=== PATIENT | female | born 1955 | race Caucasian/White ===

== ENCOUNTER 2022-06-04 13:19 | Outpatient (CLI) | payer OTHER | END 2022-06-04 13:20 | disposition home or self-care (01) | LOC: BICMAMMO 13:19 | PROVIDERS: ATTEND Student in an Organized Health Care Education/Training Program | DX: Z12.31 Encounter for screening mammogram for malignant neoplasm of breast (principal) | CPT/HCPCS: 77063; 77067 ==

== ENCOUNTER 2022-06-07 22:15 | Emergency (ER) | payer OTHER ==
[2022-06-07 23:53] LABS: #Basophils 0.1 thou/uL (0.0-0.2); #Eosinphils 0.4 thou/uL (0.0-0.7); #Lymphocytes 3.9 thou/uL (1.20-3.40); #Monocytes 0.8 thou/uL (0.11-0.59); #Neutrophils 7.1 thou/uL (1.40-6.50); %Basophils 0.8 % (0.0-1.0); %Eosinophils 3.6 % (0.0-10.0); %Lymphocytes 31.7 % (21.0-51.0); %Monocytes 6.7 % (0.0-10.0); %Neutrophils 57.2 % (42.0-75.0); Hemoglobin 14.5 g/dL (12.0-16.0); Mean Corpuscular HGB CONC 34.2 g/dL (32.0-36.0); Mean Corpuscular Hemoglobin 30.9 pg (27.0-31.0); Mean Corpuscular Volume 90.3 fL (78.0-98.0); Mean Platelet Volume 6.7 fL (7.4-10.4); Platelet Count 361 thou/uL (130-400); RBC Distribution Width 12.9 % (11.5-14.5); Red Blood Cell (RBC) Count 4.68 mill/uL (4.20-5.40); White Blood Cell (WBC) Count 12.4 thou/uL (4.8-10.8)
[2022-06-08 00:05] LABS: ALT (SGPT) 17 U/L (8-55); AST (SGOT) 19 U/L (5-34); Albumin 4.4 g/dL (3.4-4.8); Alkaline Phosphatase 106 U/L (40-110); Anion Gap 24 mmol/L (10-20); BUN (Urea Nitrogen) 24 mg/dL (9.8-20.1); Bilirubin, Total 0.8 mg/dL (0.2-1.2); Calc. Creatinine Clearance 0 mL/min (70-130); Calcium 9.7 mg/dL (7.8-10.44); Carbon Dioxide 17 mmol/L (23-31); Chloride 102 mmol/L (98-107); Estimated GFR 26; Globulin 3.9 g/dL (2.4-3.5); Glucose 149 mg/dL (80-115); Magnesium 1.8 mg/dL (1.6-2.6); Protein, Total 8.3 g/dL (5.8-8.1); Sodium 139 mmol/L (136-145)
== END 2022-06-08 03:11 | disposition home or self-care (01) ==
LOC: ERS 22:15
DX: R07.89 Other chest pain (principal); I48.91 Unspecified atrial fibrillation; Z79.01 Long term (current) use of anticoagulants; Z79.899 Other long term (current) drug therapy
CPT/HCPCS: 36415; 71045; 80053; 83605; 83735; 84443; 84484; 85025; 93005

== ENCOUNTER 2023-01-01 19:30 | Outpatient (CLI) | payer OTHER | END 2023-01-01 19:31 | disposition home or self-care (01) | LOC: SLEEPLAB 19:30 | PROVIDERS: ATTEND Student in an Organized Health Care Education/Training Program | DX: G47.33 Obstructive sleep apnea (adult) (pediatric) (principal); E66.9 Obesity, unspecified; G47.00 Insomnia, unspecified; Z68.41 Body mass index [BMI] 40.0-44.9, adult; G47.61 Periodic limb movement disorder | CPT/HCPCS: 95811 ==

== ENCOUNTER 2023-09-28 11:38 | Emergency (ER) | payer MEDICARE ==
[2023-09-28] MEDS ORDERED: Lidocaine 1% w/Epinephrine 1:100K 20 ML VIAL ONE (11:59)
== END 2023-09-28 12:28 | disposition home or self-care (01) ==
LOC: ERS 11:38
DX: N76.4 Abscess of vulva (principal); Z87.891 Personal history of nicotine dependence
CPT/HCPCS: 99282

== ENCOUNTER 2024-02-11 08:19 | Day surgery (SDC) | payer MEDICARE ==
[2024-02-11 08:39] LABS: #Basophils 0.05 10x3/uL (0.0-0.2); %Basophils 0.7 % (0.0-1.0); %Eosinophils 5.2 % (0.0-10.0); %Lymphocytes 19.7 % (21.0-51.0); %Neutrophils 66.1 % (42.0-75.0); Hematocrit 40.6 % (36.0-47.0); Hemoglobin 13.3 g/dL (12.0-16.0); Mean Corpuscular HGB CONC 32.8 g/dL (32.0-36.0); Mean Corpuscular Hemoglobin 30.9 pg (27.0-31.0); Mean Corpuscular Volume 94.2 fL (78.0-98.0); Mean Platelet Volume 9.1 fL (7.4-10.4); Platelet Count 303 10x3/uL (130-400); RBC Distribution Width 13.4 % (11.5-14.5); Red Blood Cell (RBC) Count 4.31 mill/uL (4.20-5.40)
[2024-02-11 08:53] LABS: PTT 33.8 sec (22.9-36.1)
[2024-02-11 09:45] VITALS: BP 137/67; TEMP 98.4
[2024-02-11] MEDS ORDERED: fentaNYL 50 mcg/mL 1 mL Vial ONE (09:47)
[2024-02-11] MEDS ORDERED: Midazolam HCl 2 mg/2 ml Vial ONE (09:47)
[2024-02-11] MEDS ORDERED: Lidocaine 1% w/Epinephrine 1:100K 20 ML VIAL ONE (09:48)
[2024-02-11] MEDS ORDERED: Sodium Bicarbonate 2.5 MEQ/5 ML SDV ONE (09:48)
== END 2024-02-11 14:00 | disposition home or self-care (01) ==
LOC: CT 08:19
PROVIDERS: ATTEND Student in an Organized Health Care Education/Training Program
PROC: 0BBJ3ZX Excision of Left Lower Lung Lobe, Percutaneous Approach, Diagnostic (ICD-10-PCS; principal; 2024-02-11)
DX: C34.32 Malignant neoplasm of lower lobe, left bronchus or lung (principal); G47.33 Obstructive sleep apnea (adult) (pediatric); J44.9 Chronic obstructive pulmonary disease, unspecified; I48.91 Unspecified atrial fibrillation; I10 Essential (primary) hypertension; K57.30 Diverticulosis of large intestine without perforation or abscess without bleeding; I13.0 Hypertensive heart and chronic kidney disease with heart failure and stage 1 through stage 4 chronic kidney disease, or unspecified chronic kidney disease; N18.32 Chronic kidney disease, stage 3b; I50.30 Unspecified diastolic (congestive) heart failure; Z90.710 Acquired absence of both cervix and uterus; Z96.653 Presence of artificial knee joint, bilateral; Z95.5 Presence of coronary angioplasty implant and graft; Z79.82 Long term (current) use of aspirin; Z79.84 Long term (current) use of oral hypoglycemic drugs; Z79.899 Other long term (current) drug therapy; Z79.01 Long term (current) use of anticoagulants; Z87.891 Personal history of nicotine dependence; Z95.0 Presence of cardiac pacemaker; Z88.6 Allergy status to analgesic agent
CPT/HCPCS: 32408; 71045; 71046; 77012; 85025; 85610; 85730; 88333; 88334; J3010; 88305; 88341; 88342; J2250

== ENCOUNTER 2024-02-20 15:31 | Emergency (ER) | payer MEDICARE ==
[~2024-02-20 15:31] MED LIST: Iopamidol-370 76% 500 ML MDV (1 ML CHARGE) ONE
[2024-02-20 17:03] LABS: #Basophils 0.04 10x3/uL (0.0-0.2); %Basophils 0.6 % (0.0-1.0); %Eosinophils 2.8 % (0.0-10.0); %Lymphocytes 15.6 % (21.0-51.0); %Neutrophils 72.7 % (42.0-75.0); Hematocrit 36.8 % (36.0-47.0); Hemoglobin 12.2 g/dL (12.0-16.0); Mean Corpuscular HGB CONC 33.2 g/dL (32.0-36.0); Mean Corpuscular Volume 93.4 fL (78.0-98.0); Mean Platelet Volume 9.5 fL (7.4-10.4); Platelet Count 233 10x3/uL (130-400); RBC Distribution Width 13.8 % (11.5-14.5); Red Blood Cell (RBC) Count 3.94 mill/uL (4.20-5.40)
[2024-02-20 17:17] LABS: INR-International Normal Ratio 1.2; PTT 38.1 sec (22.9-36.1); Prothrombin Time 14.8 sec (12.0-14.7)
[2024-02-20 17:18] LABS: ALT (SGPT) 18 U/L (8-55); AST (SGOT) 24 U/L (5-34); Albumin 3.2 g/dL (3.4-4.8); Alkaline Phosphatase 66 U/L (40-110); Anion Gap 16 mmol/L (10-20); BUN (Urea Nitrogen) 17 mg/dL (9.8-20.1); Bilirubin, Total 0.6 mg/dL (0.2-1.2); Calc. Creatinine Clearance 0 mL/min (70-130); Carbon Dioxide 23 mmol/L (23-31); Chloride 108 mmol/L (98-107); Estimated GFR 51; Globulin 3.1 g/dL (2.4-3.5); Glucose 101 mg/dL (80-115); Lipase 18 U/L (8-78); Potassium 4.1 mmol/L (3.5-5.1); Protein, Total 6.3 g/dL (5.8-8.1); Sodium 143 mmol/L (136-145)
[2024-02-20 17:48] LABS: Troponin I 0.014 ng/mL (< 0.028)
[2024-02-20] MEDS ORDERED: Acetaminophen 500 MG TAB ONE (18:05)
== END 2024-02-20 20:44 | disposition home or self-care (01) ==
LOC: ERS 15:31
DX: S60.221A Contusion of right hand, initial encounter (principal); S29.9XXA Unspecified injury of thorax, initial encounter; M79.18 Myalgia, other site; I10 Essential (primary) hypertension; I48.91 Unspecified atrial fibrillation; E11.9 Type 2 diabetes mellitus without complications; R54 Age-related physical debility; W18.30XA Fall on same level, unspecified, initial encounter; Y93.01 Activity, walking, marching and hiking; Y92.009 Unspecified place in unspecified non-institutional (private) residence as the place of occurrence of the external cause; Z79.01 Long term (current) use of anticoagulants; Z95.0 Presence of cardiac pacemaker; Z87.891 Personal history of nicotine dependence; Z79.82 Long term (current) use of aspirin; Z79.84 Long term (current) use of oral hypoglycemic drugs; Z79.899 Other long term (current) drug therapy
CPT/HCPCS: 36415; 70450; 71275; 72125; 74177; 80053; 83690; 84484; 85025; 85610; 85730; 93005; Q9967

== ENCOUNTER 2024-03-10 08:00 | Outpatient (CLI) | payer MEDICARE | END 2024-03-10 08:01 | LOC: PET 08:00 | PROVIDERS: ATTEND Internal Medicine Hematology & Oncology | DX: C34.32 Malignant neoplasm of lower lobe, left bronchus or lung (principal); E04.1 Nontoxic single thyroid nodule | CPT/HCPCS: 78815; A9552 ==

== ENCOUNTER 2024-04-01 10:05 | Outpatient (CLI) | payer MEDICARE ==
[2024-04-01 10:49] LABS: Hematocrit 37.9 % (34.9-44.5); Hemoglobin 12.8 g/dL (12.0-15.5); Mean Corpuscular HGB CONC 33.8 g/dL (32.0-36.0); Mean Corpuscular Hemoglobin 30.8 pg (27.0-33.0); Mean Corpuscular Volume 91.1 fL (81.6-98.3); Mean Platelet Volume 9.5 fL (7.4-10.4); Platelet Count 294 10x3/uL (150-450); RBC Distribution Width 12.9 % (11.5-14.5); Red Blood Cell (RBC) Count 4.16 10x6/uL (3.90-5.03); White Blood Cell (WBC) Count 8.5 10x3/uL (3.5-10.5)
[2024-04-01 11:00] LABS: Anion Gap 16 mmol/L (10-20); BUN (Urea Nitrogen) 21 mg/dL (9.8-20.1); Calc. Creatinine Clearance 0 mL/min (70-130); Calcium 8.8 mg/dL (7.8-10.44); Carbon Dioxide 20 mmol/L (23-31); Chloride 108 mmol/L (98-107); Estimated GFR 53; Glucose 165 mg/dL (80-115); Potassium 3.8 mmol/L (3.5-5.1); Sodium 140 mmol/L (136-145)
== END 2024-04-01 10:06 | disposition home or self-care (01) ==
LOC: LABBT 10:05
PROVIDERS: ATTEND Student in an Organized Health Care Education/Training Program
DX: Z01.818 Encounter for other preprocedural examination (principal)
CPT/HCPCS: 80048; 85027; 93005; 93010

== ENCOUNTER 2024-04-04 05:44 | Day surgery (SDC) | payer MEDICARE ==
[2024-04-01 10:24] VITALS: BMI 38.7
[2024-04-04] MEDS ORDERED: EPINEPHrine 1 MG/ML VIAL ONE (06:24)
[2024-04-04] MEDS ORDERED: Bupivacaine PF 0.5% 30 ML VIAL ONE (06:24)
[2024-04-04] MEDS ORDERED: CEFAZOLIN 2 GM VIAL ONE (06:58)
[2024-04-04] MEDS ORDERED: Sodium Chloride 0.9% 100 ML ONE (06:58)
[2024-04-04] MEDS ORDERED: Midazolam HCl 2 mg/2 ml Vial ONE (07:15)
[2024-04-04] MEDS ORDERED: NOREPINEPHRINE 8 MG/250 ML-D5W 250 ML ONE (07:43)
[2024-04-04] MEDS ORDERED: fentaNYL PF 100 MCG/2 ML SYRINGE ONE (07:47)
[2024-04-04] MEDS ORDERED: PROPOFOL 20 ML ONE (07:47)
[2024-04-04] MEDS ORDERED: Rocuronium Bromide 10 MG/ML (10ML VIAL) ONE (07:47)
[2024-04-04] MEDS ORDERED: Lidocaine 2% PF 5 ML VIAL ONE (07:47)
[2024-04-04] MEDS ORDERED: ePHEDrine Sulfate 50 MG/10 ML VIAL ONE ×2 (08:26→09:36)
[2024-04-04] MEDS ORDERED: SUGAMMADEX SODIUM 200 MG/2 ML VIAL ONE (09:12)
[2024-04-04] MEDS ORDERED: Ondansetron PF 4 MG/2 ML Vial ONE (09:15)
[2024-04-04] MEDS ORDERED: Furosemide 20 MG (2 mL) VIAL ONE (10:21)
[2024-04-04] MEDS ORDERED: fentaNYL 50 mcg/mL 1 mL Vial ONE (10:25)
[2024-04-04] MEDS ORDERED: HYDROcodone/Acetaminophen 5/325 mg Tablet ONE (11:57)
== END 2024-04-04 12:30 | disposition home or self-care (01) ==
LOC: SDC 05:44
PROVIDERS: ATTEND Student in an Organized Health Care Education/Training Program
PROC: 07B74ZX Excision of Thorax Lymphatic, Percutaneous Endoscopic Approach, Diagnostic (ICD-10-PCS; principal; 2024-04-04)
DX: C34.32 Malignant neoplasm of lower lobe, left bronchus or lung (principal); D76.3 Other histiocytosis syndromes; I10 Essential (primary) hypertension; I48.91 Unspecified atrial fibrillation; G47.33 Obstructive sleep apnea (adult) (pediatric); M19.90 Unspecified osteoarthritis, unspecified site; E11.9 Type 2 diabetes mellitus without complications; F41.9 Anxiety disorder, unspecified; F32.A Depression, unspecified; Z95.0 Presence of cardiac pacemaker; Z87.891 Personal history of nicotine dependence; Z79.82 Long term (current) use of aspirin; Z79.01 Long term (current) use of anticoagulants; Z79.84 Long term (current) use of oral hypoglycemic drugs; Z79.899 Other long term (current) drug therapy; Z88.6 Allergy status to analgesic agent
CPT/HCPCS: 39402; C1889; J0171; J0665; J1642; J1940; J2001; J2250; J2405; J2704; J3010; J3490; 88305; 88341; 88342

== ENCOUNTER 2024-04-19 07:26 | Outpatient (CLI) | payer MEDICARE ==
[~2024-04-19 07:26] MED LIST changes: -Iopamidol-370 76% 500 ML MDV (1 ML CHARGE) ONE; +Ondansetron HCl/PF 4 MG/2 ML Vial IVP PRN; +Promethazine HCl 25 MG/ML VIAL IM PRN
[2024-04-19] MEDS ORDERED: Magnevist 469MG/ML 20 ML VIAL ONE (13:23)
== END 2024-04-19 07:27 | disposition home or self-care (01) ==
LOC: MRI 07:26
PROVIDERS: ATTEND Internal Medicine Hematology & Oncology
DX: C34.90 Malignant neoplasm of unspecified part of unspecified bronchus or lung (principal); R90.89 Other abnormal findings on diagnostic imaging of central nervous system; Z95.0 Presence of cardiac pacemaker
CPT/HCPCS: 70553; 71046; 76377; A9579

== ENCOUNTER 2024-04-22 13:01 | Outpatient (CLI) | payer MEDICARE | END 2024-04-22 13:02 | disposition home or self-care (01) | LOC: ULT 13:01 | PROVIDERS: ATTEND Internal Medicine Hematology & Oncology | DX: E04.1 Nontoxic single thyroid nodule (principal) | CPT/HCPCS: 76536 ==

== ENCOUNTER 2024-06-28 15:54 | Emergency (ER) | payer MEDICARE ==
[2024-06-28 19:14] LABS: Albumin 3.5 g/dL (3.4-4.8); Calcium 8.5 mg/dL (7.8-10.44); Chloride 109 mmol/L (98-107); Sodium 142 mmol/L (136-145)
[2024-06-28 19:15] LABS: Glucose 101 mg/dL (80-115)
[2024-06-28 19:16] LABS: Anion Gap 17 mmol/L (10-20); Carbon Dioxide 21 mmol/L (23-31); Globulin 3.1 g/dL (2.4-3.5); Protein, Total 6.6 g/dL (5.8-8.1)
[2024-06-28 19:18] LABS: Alkaline Phosphatase 87 U/L (40-110); Bilirubin, Total 0.6 mg/dL (0.2-1.2)
[2024-06-28 19:19] LABS: BUN (Urea Nitrogen) 32 mg/dL (9.8-20.1); Calc. Creatinine Clearance 0 mL/min (70-130); Estimated GFR 45
[2024-06-28 19:20] LABS: Troponin I Less than 0.010 ng/mL (< 0.028)
[2024-06-28 19:21] LABS: ALT (SGPT) 12 U/L (8-55); AST (SGOT) 17 U/L (5-34)
[2024-06-28 20:01] LABS: Anisocytosis MODERATE=16-30 cells HPF (0-5); Band 1 % (5-11); Dohle Bodies SLIGHT; Eosinophils 3 % (0-10); Hematocrit 25.9 % (36.0-47.0); Hemoglobin 8.6 g/dL (12.0-16.0); Lymphocytes 21 % (21-51); Mean Corpuscular HGB CONC 33.2 g/dL (32.0-36.0); Mean Corpuscular Hemoglobin 31.2 pg (27.0-31.0); Mean Corpuscular Volume 93.8 fL (78.0-98.0); Mean Platelet Volume 10.8 fL (7.4-10.4); Monocytes 1 % (0-10); Neutrophil 72 % (42-75); Ovalocytes SLIGHT = 2-5 cells HPF (0-1); Platelet Adequacy Comment Platelets Decreased; Platelet Count 89 10x3/uL (130-400); Polychromasia SLIGHT = 2-3 cells HPF (0-2); RBC Distribution Width 19.3 % (11.5-14.5); Reactive Lymphocytes 2 % (0-10); Red Blood Cell (RBC) Count 2.76 mill/uL (4.20-5.40); Tear Drops SLIGHT = 2-5 cells HPF (0-1); Toxic Granulation MODERATE
[2024-06-28] MEDS ORDERED: Meclizine HCl 25 MG TAB ONE (20:03)
[2024-06-28 21:05] LABS: Magnesium 1.2 mg/dL (1.6-2.6)
== END 2024-06-28 23:05 | disposition home or self-care (01) ==
LOC: ERS 15:54
DX: R42 Dizziness and giddiness (principal); E87.8 Other disorders of electrolyte and fluid balance, not elsewhere classified; E11.9 Type 2 diabetes mellitus without complications; Z87.891 Personal history of nicotine dependence
CPT/HCPCS: 70450; 71045; 80053; 83735; 84484; 85025; 93005; 96374

== ENCOUNTER 2024-07-03 13:44 | Inpatient (IN) | payer MEDICARE ==
[~2024-07-03 13:44] MED LIST changes: +Iopamidol-370 76% 500 ML MDV (1 ML CHARGE) ONE; -Ondansetron HCl/PF 4 MG/2 ML Vial IVP PRN; -Promethazine HCl 25 MG/ML VIAL IM PRN
[2024-07-03 14:45] LABS: Hematocrit 21.3 % (36.0-47.0); Hemoglobin 7.3 g/dL (12.0-16.0); Mean Corpuscular HGB CONC 34.3 g/dL (32.0-36.0); Mean Corpuscular Hemoglobin 31.9 pg (27.0-31.0); Mean Platelet Volume 10.8 fL (7.4-10.4); Platelet Count 44 10x3/uL (130-400); RBC Distribution Width 18.3 % (11.5-14.5); Red Blood Cell (RBC) Count 2.29 mill/uL (4.20-5.40)
[2024-07-03 14:55] LABS: ALT (SGPT) 12 U/L (8-55); AST (SGOT) 15 U/L (5-34); Albumin 3.2 g/dL (3.4-4.8); Alkaline Phosphatase 91 U/L (40-110); Anion Gap 15 mmol/L (10-20); BUN (Urea Nitrogen) 24 mg/dL (9.8-20.1); Bilirubin, Total 0.9 mg/dL (0.2-1.2); Calc. Creatinine Clearance 0 mL/min (70-130); Calcium 8.6 mg/dL (7.8-10.44); Carbon Dioxide 21 mmol/L (23-31); Chloride 109 mmol/L (98-107); Estimated GFR 38; Globulin 3.2 g/dL (2.4-3.5); Glucose 166 mg/dL (80-115); Magnesium 1.2 mg/dL (1.6-2.6); Potassium 4.2 mmol/L (3.5-5.1); Protein, Total 6.4 g/dL (5.8-8.1); Sodium 141 mmol/L (136-145)
[2024-07-03 14:57] LABS: INR-International Normal Ratio 1.7; Prothrombin Time 19.8 sec (12.0-14.7)
[2024-07-03 14:58] LABS: PTT 42.8 sec (22.9-36.1)
[2024-07-03 15:00] LABS: Troponin I Less than 0.010 ng/mL (< 0.028)
[2024-07-03 15:04] LABS: Band 5 % (5-11); Eosinophils 1 % (0-10); Lymphocytes 20 % (21-51); Macrocytosis SLIGHT = 6-15 cells HPF (0-5); Monocytes 2 % (0-10); Neutrophil 72 % (42-75); Platelet Adequacy Comment Platelets Decreased; Polychromasia SLIGHT = 2-3 cells HPF (0-2)
[2024-07-03] MEDS ORDERED: Magnesium 2 GM/50 ML BAG (IN WATER) ONE (16:52)
[2024-07-03] MEDS ORDERED: Acetaminophen 325 MG TAB PO PRN (17:36)
[2024-07-03 18:14] LABS: Lactic Acid 1.85 mmol/L (0.5-2.2)
[2024-07-03 18:57] VITALS: BMI 36.9
[2024-07-03] MEDS ORDERED: Carvedilol 25 MG TAB PO SCH (20:00)
[2024-07-03] MEDS: Melatonin 3 MG TAB PO SCH (20:59)
[2024-07-03] MEDS ORDERED: Sacubitril 49 MG/Valsartan 51 MG TABLET PO SCH (21:00)
[2024-07-03] MEDS: Carvedilol 6.25 MG TAB PO SCH (21:28)
[2024-07-03 23:45] LABS: Hemoglobin 7.6 g/dL (12.0-16.0); Platelet Count 38 10x3/uL (130-400)
[2024-07-04] MEDS: Melatonin 3 MG TAB PO SCH (00:29)
[2024-07-04 06:24] LABS: Hematocrit 21.9 % (36.0-47.0); Hemoglobin 7.6 g/dL (12.0-16.0)
[2024-07-04 06:29] LABS: Hemoglobin 7.6 g/dL (12.0-16.0); Mean Corpuscular Hemoglobin 31.4 pg (27.0-31.0); Mean Platelet Volume 11.5 fL (7.4-10.4); Platelet Count 36 10x3/uL (130-400); RBC Distribution Width 17.4 % (11.5-14.5); Red Blood Cell (RBC) Count 2.42 mill/uL (4.20-5.40)
[2024-07-04 06:51] LABS: Anion Gap 10 mmol/L (10-20); BUN (Urea Nitrogen) 19 mg/dL (9.8-20.1); Calc. Creatinine Clearance 76 mL/min (70-130); Calcium 8.2 mg/dL (7.8-10.44); Carbon Dioxide 20 mmol/L (23-31); Chloride 111 mmol/L (98-107); Estimated GFR 47; Glucose 106 mg/dL (80-115); Potassium 3.5 mmol/L (3.5-5.1); Sodium 137 mmol/L (136-145)
[2024-07-04 06:57] LABS: Anisocytosis SLIGHT = 6-15 cells HPF (0-5); Eosinophils 2 % (0-10); Lymphocytes 17 % (21-51); Monocytes 5 % (0-10); Neutrophil 75 % (42-75); Platelet Adequacy Comment Platelets Decreased; Polychromasia SLIGHT = 2-3 cells HPF (0-2); Smudge Cells 6.8 %; Toxic Granulation SLIGHT
[2024-07-04 07:42] LABS: Magnesium 1.3 mg/dL (1.6-2.6)
[2024-07-04] MEDS ORDERED: Carvedilol 25 MG TAB PO SCH (08:00)
[2024-07-04] MEDS: Ezetimibe 10 MG TAB PO SCH (09:21)
[2024-07-04] MEDS: metFORMIN XR 500 MG ER.TAB PO SCH (09:21)
[2024-07-04] MEDS: Venlafaxine HCl XR 75 MG CAP PO SCH (09:21)
[2024-07-04] MEDS: Carvedilol 6.25 MG TAB PO SCH ×2 (10:53→16:25)
[2024-07-04] MEDS: Magnesium Oxide 400 MG TAB PO SCH (10:54)
[2024-07-04] MEDS: Ondansetron ODT 4 MG TAB PO PRN (10:56)
[2024-07-04 13:29] VITALS: BMI 36.9
[2024-07-04 15:18] LABS: Hematocrit 28.1 % (36.0-47.0); Hemoglobin 9.5 g/dL (12.0-16.0); Platelet Count 42 10x3/uL (130-400)
[2024-07-04 19:17] LABS: Hematocrit 27.8 % (36.0-47.0); Hemoglobin 9.3 g/dL (12.0-16.0); Platelet Count 34 10x3/uL (130-400)
[2024-07-04 19:36] LABS: Magnesium 1.4 mg/dL (1.6-2.6)
[2024-07-05 08:01] LABS: #Basophils Less than 0.03 10x3/uL (0.0-0.2); %Basophils 0.3 % (0.0-1.0); %Eosinophils 3.1 % (0.0-10.0); %Lymphocytes 23.1 % (21.0-51.0); %Monocytes 12.1 % (0.0-10.0); %Neutrophils 60.9 % (42.0-75.0); Hematocrit 24.7 % (36.0-47.0); Hemoglobin 8.4 g/dL (12.0-16.0); Mean Corpuscular Hemoglobin 31.5 pg (27.0-31.0); Mean Corpuscular Volume 92.5 fL (78.0-98.0); Platelet Count 30 10x3/uL (130-400); RBC Distribution Width 17.4 % (11.5-14.5); Red Blood Cell (RBC) Count 2.67 mill/uL (4.20-5.40)
[2024-07-05 08:07] LABS: Anion Gap 12 mmol/L (10-20); BUN (Urea Nitrogen) 14 mg/dL (9.8-20.1); Calc. Creatinine Clearance 84 mL/min (70-130); Calcium 8.3 mg/dL (7.8-10.44); Carbon Dioxide 20 mmol/L (23-31); Chloride 111 mmol/L (98-107); Estimated GFR 53; Glucose 94 mg/dL (80-115); Potassium 3.8 mmol/L (3.5-5.1); Sodium 139 mmol/L (136-145)
[2024-07-05 12:18] VITALS: BP 135/58; TEMP 97.7
== END 2024-07-05 12:07 | disposition home or self-care (01) | DRG 809 ==
LOC: ERS 13:44 → MSONC 16:22
PROVIDERS: ADMIT Student in an Organized Health Care Education/Training Program; ATTEND Student in an Organized Health Care Education/Training Program
PROC: 30233N1 Transfusion of Nonautologous Red Blood Cells into Peripheral Vein, Percutaneous Approach (ICD-10-PCS; principal; 2024-07-03)
DX: D61.810 Antineoplastic chemotherapy induced pancytopenia (principal); I50.22 Chronic systolic (congestive) heart failure; T45.1X5A Adverse effect of antineoplastic and immunosuppressive drugs, initial encounter; I11.0 Hypertensive heart disease with heart failure; I48.91 Unspecified atrial fibrillation; N18.30 Chronic kidney disease, stage 3 unspecified; E11.22 Type 2 diabetes mellitus with diabetic chronic kidney disease; D63.1 Anemia in chronic kidney disease; E83.42 Hypomagnesemia; J44.9 Chronic obstructive pulmonary disease, unspecified; Z96.653 Presence of artificial knee joint, bilateral; Z96.641 Presence of right artificial hip joint; Z95.0 Presence of cardiac pacemaker; Z88.8 Allergy status to other drugs, medicaments and biological substances; Z79.01 Long term (current) use of anticoagulants; Z79.82 Long term (current) use of aspirin; Z95.818 Presence of other cardiac implants and grafts; Z90.710 Acquired absence of both cervix and uterus; Z90.49 Acquired absence of other specified parts of digestive tract; Z98.49 Cataract extraction status, unspecified eye; Z98.890 Other specified postprocedural states; Z87.891 Personal history of nicotine dependence
CPT/HCPCS: 36415; 36430; 70450; 71045; 71260; 74177; 80048; 80053; 83605; 83735; 83880; 84484; 85025; 85610; 85730; 86850; 86900; 86901; 87040; 93005; J3475; P9016; Q0162; Q9967

== ENCOUNTER 2024-07-12 11:45 | Outpatient (CLI) | payer MEDICARE | END 2024-07-12 11:46 | disposition home or self-care (01) | LOC: PET 11:45 | PROVIDERS: ATTEND Internal Medicine Hematology & Oncology | DX: C34.32 Malignant neoplasm of lower lobe, left bronchus or lung (principal); R91.8 Other nonspecific abnormal finding of lung field; J98.4 Other disorders of lung; E04.1 Nontoxic single thyroid nodule | CPT/HCPCS: 78815; A9552 ==

== ENCOUNTER 2024-08-03 14:19 | Outpatient (CLI) | payer MEDICARE ==
[2024-08-03 15:43] LABS: #Basophils 0.07 10x3/uL (0.0-0.2); %Eosinophils 18.5 % (0.0-10.0); %Lymphocytes 17.2 % (21.0-51.0); %Monocytes 8.4 % (0.0-10.0); %Neutrophils 54.5 % (42.0-75.0); Hematocrit 36.9 % (36.0-47.0); Mean Corpuscular HGB CONC 32.5 g/dL (32.0-36.0); Mean Corpuscular Hemoglobin 32.8 pg (27.0-31.0); Mean Corpuscular Volume 100.8 fL (78.0-98.0); Mean Platelet Volume 9.7 fL (7.4-10.4); Platelet Count 203 10x3/uL (130-400); RBC Distribution Width 19.3 % (11.5-14.5); Red Blood Cell (RBC) Count 3.66 mill/uL (4.20-5.40)
[2024-08-03 15:57] LABS: INR-International Normal Ratio 1.2; Prothrombin Time 14.9 sec (12.0-14.7)
[2024-08-03 16:04] LABS: Anion Gap 14 mmol/L (10-20); BUN (Urea Nitrogen) 13 mg/dL (9.8-20.1); Calc. Creatinine Clearance 0 mL/min (70-130); Calcium 9.2 mg/dL (7.8-10.44); Carbon Dioxide 25 mmol/L (23-31); Chloride 107 mmol/L (98-107); Estimated GFR 50; Glucose 88 mg/dL (80-115); Potassium 3.7 mmol/L (3.5-5.1); Sodium 142 mmol/L (136-145)
== END 2024-08-03 14:20 | disposition home or self-care (01) ==
LOC: LABBT 14:19
PROVIDERS: ATTEND Student in an Organized Health Care Education/Training Program
DX: Z01.818 Encounter for other preprocedural examination (principal); C34.32 Malignant neoplasm of lower lobe, left bronchus or lung
CPT/HCPCS: 71046; 80048; 85025; 85610; 86850; 86900; 86901; 93005; 93010

== ENCOUNTER 2024-08-03 14:30 | Inpatient (IN) | payer MEDICARE ==
[2024-08-05] MEDS ORDERED: Bupivacaine 0.25% HCL 30 ML VIAL ONE (06:52)
[2024-08-05] MEDS ORDERED: EPINEPHrine 1 MG/ML VIAL ONE (06:52)
[2024-08-05] MEDS ORDERED: PROPOFOL 20 ML ONE (07:09)
[2024-08-05] MEDS ORDERED: Fentanyl 250 MCG/5 ML VIAL ONE (07:09)
[2024-08-05] MEDS ORDERED: Lidocaine 1% PF 5 ML VIAL ONE (07:10)
[2024-08-05] MEDS ORDERED: Rocuronium Bromide 10 MG/ML (10ML VIAL) ONE ×3 (07:10→12:47)
[2024-08-05] MEDS ORDERED: Dexmedetomidine 200 MCG/2 ML VIAL ONE (07:10)
[2024-08-05] MEDS ORDERED: CEFAZOLIN 2 GM VIAL ONE (07:24)
[2024-08-05] MEDS ORDERED: PHENYLEPHRINE-NS 100 MCG/ML 10 ML SYRINGE ONE ×3 (07:33→12:14)
[2024-08-05] MEDS ORDERED: Etomidate 40 MG (20 mL) VIAL ONE (07:39)
[2024-08-05] MEDS ORDERED: Phenylephrine 10 MG/ML VIAL ONE ×2 (10:30→12:10)
[2024-08-05] MEDS ORDERED: ePHEDrine Sulfate 50 MG/10 ML VIAL ONE (11:27)
[2024-08-05] MEDS ORDERED: Albumin 5% 500 ML ONE (12:04)
[2024-08-05] MEDS ORDERED: CEFAZOLIN 1 GM VIAL ONE (12:54)
[2024-08-05] MEDS ORDERED: NOREPINEPHRINE 8 MG/250 ML-D5W 250 ML ONE (13:12)
[2024-08-05] MEDS ORDERED: Ondansetron PF 4 MG/2 ML Vial ONE (13:57)
[2024-08-05] MEDS ORDERED: SUGAMMADEX SODIUM 200 MG/2 ML VIAL ONE (13:57)
[2024-08-05] MEDS ORDERED: Promethazine HCl 25 MG/ML VIAL IM PRN (14:58)
[2024-08-05] MEDS ORDERED: Ondansetron PF 4 MG/2 ML Vial IVP PRN (14:58)
[2024-08-05] MEDS ORDERED: Morphine 4 MG/ML VIAL SLOW IVP PRN (14:58)
[2024-08-05] MEDS ORDERED: fentaNYL 50 mcg/mL 1 mL Vial ONE ×4 (15:45→17:41)
[2024-08-05 15:53] LABS: Actual Bicarbonate (HCO3a) 19.3 mEq/L (22-28); Base Excess (BEa) -6.9 mEq/L (-2.0 to +3.0); CO2 Tension 41.8 mmHg (35.0-45.0); Calcium, Ionized (arterial) 1.07 mmol/L (1.12-1.30); Carboxyhemoglobin (COHb) 0.6 gm% (0.0-3.0); Hematocrit-ABG 31 % (36.0-47.0); Hemoglobin (Hb) 10.6 g/dL (12.0-16.0); O2 Tension (PaO2), arterial 145.4 mmHg (> 70.0); Potassium - ABG Lab 4.06 mmol/L (3.70-5.30); pH, Arterial 7.283 (7.35-7.45)
[2024-08-05 15:54] LABS: Puncture Site Arterial Line
[2024-08-05] MEDS ORDERED: Albumin 5% 250 ML ONE (15:59)
[2024-08-05 16:00] LABS: #Basophils 0.04 10x3/uL (0.0-0.2); %Basophils 0.4 % (0.0-1.0); %Eosinophils 4.5 % (0.0-10.0); %Lymphocytes 5.5 % (21.0-51.0); %Monocytes 6.1 % (0.0-10.0); %Neutrophils 83.2 % (42.0-75.0); Hematocrit 30.5 % (36.0-47.0); Hemoglobin 9.6 g/dL (12.0-16.0); Mean Corpuscular HGB CONC 31.5 g/dL (32.0-36.0); Mean Corpuscular Hemoglobin 33.4 pg (27.0-31.0); Mean Corpuscular Volume 106.3 fL (78.0-98.0); Mean Platelet Volume 9.1 fL (7.4-10.4); Platelet Count 130 10x3/uL (130-400); RBC Distribution Width 19.2 % (11.5-14.5); Red Blood Cell (RBC) Count 2.87 mill/uL (4.20-5.40)
[2024-08-05 16:12] LABS: Anion Gap 13 mmol/L (10-20); BUN (Urea Nitrogen) 12 mg/dL (9.8-20.1); Calc. Creatinine Clearance 51 mL/min (70-130); Calcium 7.7 mg/dL (7.8-10.44); Carbon Dioxide 20 mmol/L (23-31); Chloride 114 mmol/L (98-107); Estimated GFR 34; Glucose 130 mg/dL (80-115); Potassium 4.2 mmol/L (3.5-5.1); Sodium 143 mmol/L (136-145)
[2024-08-05] MEDS: CALCIUM GLUC 1 GM/NS 50 ML 1 GM in Premix 1 BAG IVPB SCH (16:48)
[2024-08-05] MEDS ORDERED: Ketorolac Tromethamine 30 MG (1 mL) VIAL IVP SCH (18:00)
[2024-08-05] MEDS ORDERED: Morphine 4 MG/ML VIAL ONE (18:28)
[2024-08-05] MEDS ORDERED: Acetaminophen 325 MG (10.15 ML) UDCUP ONE (18:31)
[2024-08-05] MEDS ORDERED: Acetaminophen 325 MG TAB ONE (18:35)
[2024-08-05] MEDS: Acetaminophen 325 MG TAB PO SCH (18:37)
[2024-08-05] MEDS: Sodium Chloride 0.9% 1,000 ML IV SCH (18:39)
[2024-08-05] MEDS: Methocarbamol 500 MG TAB PO SCH (18:40)
[2024-08-05] MEDS ORDERED: hydrALAZINE 20 MG/ML VIAL ONE (18:53)
[2024-08-05] MEDS: hydrALAZINE 20 MG/ML VIAL SLOW IVP PRN (18:54)
[2024-08-05] MEDS: HYDROcodone/Acetaminophen 5/325 mg Tablet PO PRN (20:20)
[2024-08-05] MEDS: Gabapentin 300 MG CAP PO SCH (20:21)
[2024-08-05] MEDS: CEFAZOLIN 2 GM in Sodium Chloride 0.9% 100 ML IVPB SCH (20:22)
[2024-08-06 05:13] LABS: #Basophils 0.03 10x3/uL (0.0-0.2); %Basophils 0.4 % (0.0-1.0); %Eosinophils 4.3 % (0.0-10.0); %Neutrophils 77.1 % (42.0-75.0); Hematocrit 30.3 % (36.0-47.0); Hemoglobin 9.5 g/dL (12.0-16.0); Mean Corpuscular HGB CONC 31.4 g/dL (32.0-36.0); Mean Corpuscular Hemoglobin 33.2 pg (27.0-31.0); Mean Corpuscular Volume 105.9 fL (78.0-98.0); Mean Platelet Volume 9.4 fL (7.4-10.4); Platelet Count 142 10x3/uL (130-400); Red Blood Cell (RBC) Count 2.86 mill/uL (4.20-5.40)
[2024-08-06 05:20] LABS: Anion Gap 13 mmol/L (10-20); BUN (Urea Nitrogen) 15 mg/dL (9.8-20.1); Calc. Creatinine Clearance 57 mL/min (70-130); Calcium 7.9 mg/dL (7.8-10.44); Carbon Dioxide 22 mmol/L (23-31); Chloride 111 mmol/L (98-107); Estimated GFR 32; Glucose 103 mg/dL (80-115); Potassium 4.1 mmol/L (3.5-5.1); Sodium 142 mmol/L (136-145)
[2024-08-06] MEDS: Lidocaine 4% Patch TD SCH (08:38)
[2024-08-06] MEDS: HYDROcodone/Acetaminophen 5/325 mg Tablet PO PRN (10:34)
[2024-08-06] MEDS: Ipratropium/Albuterol 3 ML NEB NEB PRN (13:54)
[2024-08-06] MEDS: Heparin 5,000 UNITS/ML VIAL SC SCH (15:15)
[2024-08-07] MEDS: Transdermal Patch Removal TOP SCH (00:30)
[2024-08-07] MEDS ORDERED: Ipratropium/Albuterol 3 ML NEB NEB PRN (07:07)
[2024-08-07] MEDS: Furosemide 40 MG (4 mL) VIAL SLOW IVP SCH (09:51)
[2024-08-07] MEDS: Ipratropium/Albuterol 3 ML NEB NEB SCH (12:17)
[2024-08-07 12:24] VITALS: BMI 39.2
[2024-08-08] MEDS ORDERED: Meclizine HCl 25 MG TAB PO PRN (18:30)
[2024-08-08] MEDS: Carvedilol 6.25 MG TAB PO SCH (18:46)
[2024-08-08] MEDS: Sacubitril 24MG/Valsartan 26 MG TAB PO SCH (20:36)
[2024-08-08] MEDS: Melatonin 3 MG TAB PO SCH (20:36)
[2024-08-09] MEDS ORDERED: Carvedilol 6.25 MG TAB PO SCH (08:00)
[2024-08-09] MEDS: Torsemide 20 MG TAB PO SCH (08:52)
[2024-08-09] MEDS: Dapagliflozin Propanediol 10 MG TAB PO SCH (08:53)
[2024-08-09] MEDS: Venlafaxine HCl XR 150 MG CAP PO SCH (08:53)
[2024-08-09] MEDS: Venlafaxine HCl XR 75 MG CAP PO SCH (08:54)
[2024-08-09] MEDS: Carvedilol 6.25 MG TAB PO SCH (08:54)
[2024-08-09] MEDS: Ezetimibe 10 MG TAB PO SCH (08:54)
[2024-08-09] MEDS ORDERED: VENLAFAXINE HCL 225 MG PO SCH (09:00)
[2024-08-09 16:05] VITALS: BP 133/65
[2024-08-09 16:11] VITALS: TEMP 98.2
== END 2024-08-09 18:15 | disposition home or self-care (01) | DRG 164 ==
LOC: SURG A 08-05 06:29 → 2NO 08-05 19:55
PROVIDERS: ADMIT Student in an Organized Health Care Education/Training Program; ATTEND Student in an Organized Health Care Education/Training Program
PROC: 0BTJ4ZZ Resection of Left Lower Lung Lobe, Percutaneous Endoscopic Approach (ICD-10-PCS; principal; 2024-08-05)
PROC: 07B74ZX Excision of Thorax Lymphatic, Percutaneous Endoscopic Approach, Diagnostic (ICD-10-PCS; 2024-08-05)
DX: C34.32 Malignant neoplasm of lower lobe, left bronchus or lung (principal); J93.82 Other air leak; M19.90 Unspecified osteoarthritis, unspecified site; F32.A Depression, unspecified; G89.29 Other chronic pain; I10 Essential (primary) hypertension; J98.2 Interstitial emphysema; G47.33 Obstructive sleep apnea (adult) (pediatric); E11.9 Type 2 diabetes mellitus without complications; I48.91 Unspecified atrial fibrillation; F41.9 Anxiety disorder, unspecified; Z87.891 Personal history of nicotine dependence; Z79.899 Other long term (current) drug therapy; Z95.0 Presence of cardiac pacemaker; Z79.82 Long term (current) use of aspirin; Z79.01 Long term (current) use of anticoagulants; Z79.84 Long term (current) use of oral hypoglycemic drugs; Z88.8 Allergy status to other drugs, medicaments and biological substances
CPT/HCPCS: 36415; 71045; 80048; 82805; 85025; 88305; 88309; 88341; 88342; 94640; A4314; C1713; C1776; C1889; C2613; J0171; J0360; J0613; J0665; J0690; J1644; J1940; J2272; J2371; J2405; J2704; J3010; J7030; J7620; P9045

== ENCOUNTER 2024-08-10 23:18 | Inpatient (IN) | payer MEDICARE ==
[2024-08-11 00:46] LABS: #Basophils Less than 0.03 10x3/uL (0.0-0.2); %Eosinophils 6.7 % (0.0-10.0); %Lymphocytes 17.7 % (21.0-51.0); %Monocytes 7.2 % (0.0-10.0); Hematocrit 30.8 % (36.0-47.0); Hemoglobin 10.1 g/dL (12.0-16.0); Mean Corpuscular HGB CONC 32.8 g/dL (32.0-36.0); Mean Corpuscular Hemoglobin 33.6 pg (27.0-31.0); Mean Corpuscular Volume 102.3 fL (78.0-98.0); Mean Platelet Volume 9.9 fL (7.4-10.4); Platelet Count 174 10x3/uL (130-400); RBC Distribution Width 17.3 % (11.5-14.5); Red Blood Cell (RBC) Count 3.01 mill/uL (4.20-5.40)
[2024-08-11 01:01] LABS: ALT (SGPT) 10 U/L (8-55); AST (SGOT) 32 U/L (5-34); Albumin 2.6 g/dL (3.4-4.8); Alkaline Phosphatase 91 U/L (40-110); Anion Gap 15 mmol/L (10-20); BUN (Urea Nitrogen) 22 mg/dL (9.8-20.1); Bilirubin, Total 0.4 mg/dL (0.2-1.2); Calc. Creatinine Clearance 0 mL/min (70-130); Calcium 8.6 mg/dL (7.8-10.44); Carbon Dioxide 22 mmol/L (23-31); Chloride 109 mmol/L (98-107); Estimated GFR 52; Globulin 3.2 g/dL (2.4-3.5); Glucose 145 mg/dL (80-115); Potassium 3.4 mmol/L (3.5-5.1); Protein, Total 5.8 g/dL (5.8-8.1); Sodium 143 mmol/L (136-145); Troponin I 0.014 ng/mL (< 0.028)
[2024-08-11] MEDS ORDERED: fentaNYL 50 mcg/mL 1 mL Vial ONE (02:26)
[2024-08-11 03:30] VITALS: BMI 37.0
[2024-08-11] MEDS: traMADol HCl 50 MG TAB PO PRN (04:48)
[2024-08-11] MEDS: Lidocaine 2% PF 100 mg/5 ml Syringe ONE (07:40)
[2024-08-11] MEDS ORDERED: Ipratropium/Albuterol 3 ML NEB NEB PRN (09:25)
[2024-08-11] MEDS ORDERED: Ondansetron PF 4 MG/2 ML Vial IVP PRN (09:25)
[2024-08-11] MEDS ORDERED: Promethazine HCl 25 MG/ML VIAL IM PRN (09:25)
[2024-08-11] MEDS ORDERED: Acetaminophen 325 MG TAB PO PRN (09:25)
[2024-08-11] MEDS ORDERED: Morphine 4 MG/ML VIAL SLOW IVP PRN (09:25)
[2024-08-11] MEDS ORDERED: HYDROcodone/Acetaminophen 5/325 mg Tablet PO PRN (09:25)
[2024-08-11] MEDS ORDERED: Methocarbamol 500 MG TAB PO PRN (09:27)
[2024-08-11] MEDS ORDERED: traMADol HCl 50 MG TAB PO PRN (09:27)
[2024-08-11] MEDS ORDERED: Meclizine HCl 25 MG TAB PO PRN (10:00)
[2024-08-11] MEDS: HYDROcodone/Acetaminophen 5/325 mg Tablet PO PRN (10:19)
[2024-08-11] MEDS: Lidocaine 1% (PF) 30 ML VIAL FS SCH (10:28)
[2024-08-11] MEDS: Lidocaine 1% (PF) 30 ML VIAL ONE (10:28)
[2024-08-11] MEDS: FLU (Fluad Triv) TS24-25 (65UP)/MF59C/PF 45 MCG/0.5 ML Syringe IM ONE (10:29)
[2024-08-11] MEDS: Sacubitril 24MG/Valsartan 26 MG TAB PO SCH ×2 (10:35→21:00)
[2024-08-11] MEDS: Atorvastatin Calcium 20 MG TAB PO SCH (10:36)
[2024-08-11] MEDS: Venlafaxine HCl XR 75 MG CAP PO SCH (10:36)
[2024-08-11] MEDS: Carvedilol 6.25 MG TAB PO SCH ×2 (10:37→17:20)
[2024-08-11] MEDS: Magnesium Oxide 250 MG TAB PO SCH (10:37)
[2024-08-11] MEDS: Gabapentin 100 MG CAP PO SCH ×2 (10:37→21:00)
[2024-08-11] MEDS: Aspirin 81 mg Enteric Coated Tablet PO SCH (10:38)
[2024-08-11] MEDS: Ezetimibe 10 MG TAB PO SCH (10:38)
[2024-08-11] MEDS: Dapagliflozin Propanediol 10 MG TAB PO SCH (10:38)
[2024-08-11] MEDS: CEFAZOLIN 2 GM in Sodium Chloride 0.9% 100 ML IVPB SCH (10:38)
[2024-08-11] MEDS: metFORMIN XR 500 MG ER.TAB PO SCH ×2 (10:39→17:21)
[2024-08-11] MEDS ORDERED: Iopamidol-370 76% 500 ML MDV (1 ML CHARGE) ONE (13:26)
[2024-08-11] MEDS: Melatonin 3 MG TAB PO SCH (21:01)
[2024-08-12] MEDS: Atorvastatin Calcium 20 MG TAB PO SCH (09:05)
[2024-08-12] MEDS: Aspirin 81 mg Enteric Coated Tablet PO SCH (09:05)
[2024-08-12] MEDS: Magnesium Oxide 250 MG TAB PO SCH (09:06)
[2024-08-12] MEDS: Venlafaxine HCl XR 75 MG CAP PO SCH (09:06)
[2024-08-12] MEDS: Ezetimibe 10 MG TAB PO SCH (09:06)
[2024-08-12] MEDS: Dapagliflozin Propanediol 10 MG TAB PO SCH (09:06)
[2024-08-14 07:56] VITALS: TEMP 97.9
[2024-08-14 11:39] VITALS: BP 133/66
== END 2024-08-14 11:55 | disposition home or self-care (01) | DRG 200 ==
LOC: ERS 23:18 → IMCU/EMU 08-11 01:42 → 2NO 08-12 13:07
PROVIDERS: ADMIT Thoracic Surgery (Cardiothoracic Vascular Surgery); ATTEND Thoracic Surgery (Cardiothoracic Vascular Surgery)
PROC: 0W9B30Z Drainage of Left Pleural Cavity with Drainage Device, Percutaneous Approach (ICD-10-PCS; principal; 2024-08-11)
DX: J93.9 Pneumothorax, unspecified (principal); C34.32 Malignant neoplasm of lower lobe, left bronchus or lung; T81.82XA Emphysema (subcutaneous) resulting from a procedure, initial encounter; E11.9 Type 2 diabetes mellitus without complications; I48.91 Unspecified atrial fibrillation; I10 Essential (primary) hypertension; F32.A Depression, unspecified; Z98.890 Other specified postprocedural states; Z95.0 Presence of cardiac pacemaker
CPT/HCPCS: 36416; 70491; 71045; 71275; 74177; 80053; 84484; 85025; 93005; 96374; J1642; J2003; J3010; Q9967

== ENCOUNTER 2024-08-22 13:27 | Outpatient (CLI) | payer MEDICARE | END 2024-08-22 13:28 | disposition home or self-care (01) | LOC: RAD 13:27 | PROVIDERS: ATTEND Student in an Organized Health Care Education/Training Program | DX: C34.32 Malignant neoplasm of lower lobe, left bronchus or lung (principal); J94.8 Other specified pleural conditions; J98.4 Other disorders of lung | CPT/HCPCS: 71046 ==

== ENCOUNTER 2024-08-26 14:25 | Outpatient (CLI) | payer MEDICARE | END 2024-08-26 14:26 | disposition home or self-care (01) | LOC: CT 14:25 | PROVIDERS: ATTEND Student in an Organized Health Care Education/Training Program | DX: C34.32 Malignant neoplasm of lower lobe, left bronchus or lung (principal); J90 Pleural effusion, not elsewhere classified; T81.82XA Emphysema (subcutaneous) resulting from a procedure, initial encounter; Z98.890 Other specified postprocedural states | CPT/HCPCS: 71250 ==

== ENCOUNTER 2024-11-29 22:03 | Emergency (ER) | payer MEDICARE ==
[2024-11-30 00:25] LABS: #Basophils 0.03 10x3/uL (0.0-0.2); %Basophils 0.5 % (0.0-1.0); %Eosinophils 5.7 % (0.0-10.0); %Lymphocytes 17.7 % (21.0-51.0); %Monocytes 9.3 % (0.0-10.0); %Neutrophils 66.5 % (42.0-75.0); Hematocrit 32.2 % (36.0-47.0); Hemoglobin 10.3 g/dL (12.0-16.0); Mean Corpuscular Hemoglobin 28.9 pg (27.0-31.0); Mean Corpuscular Volume 90.2 fL (78.0-98.0); Mean Platelet Volume 9.8 fL (7.4-10.4); Platelet Count 161 10x3/uL (130-400); RBC Distribution Width 14.7 % (11.5-14.5); Red Blood Cell (RBC) Count 3.57 mill/uL (4.20-5.40)
[2024-11-30 00:40] LABS: Lipase 14 U/L (8-78)
[2024-11-30 00:42] LABS: ALT (SGPT) 7 U/L (Less than 34); AST (SGOT) 17 U/L (11-34); Albumin 3.1 g/dL (3.1-4.5); Alkaline Phosphatase 73 U/L (40-110); Anion Gap 14 mmol/L (10-20); BUN (Urea Nitrogen) 24 mg/dL (9.8-20.1); Bilirubin, Total 0.6 mg/dL (0.3-1.2); Calc. Creatinine Clearance 0 mL/min (70-130); Calcium 8.5 mg/dL (7.8-10.44); Carbon Dioxide 20 mmol/L (23-31); Chloride 107 mmol/L (98-107); Estimated GFR 37; Globulin 3.2 g/dL (2.4-3.5); Glucose 131 mg/dL (80-115); Potassium 3.5 mmol/L (3.5-5.1); Protein, Total 6.3 g/dL (5.8-8.1); Sodium 137 mmol/L (136-145)
[2024-11-30 00:43] LABS: Acetaminophen Less than 10 mcg/mL (Less than 10); Alcohol Less than 10.0 mg/dL (Less than 10); Salicylate Less than 8.0 mg/dL (Less than 8.0)
[2024-11-30 00:45] LABS: Troponin I Less than 0.010 ng/mL (< 0.028)
[2024-11-30 02:33] LABS: Bacteria/HPF None Seen HPF (None Seen); Bilirubin Negative (Negative); Blood, Urine Trace (Negative); CAUTI Indications for Culture Alt mental st,lethar; Clarity Clear (Clear); Glucose, Urine (Dipstick) Greater than 1000 mg/dL (Negative); Ketone, Urine Negative (Negative); Leukocyte 500 Leu/uL (Negative); Nitrite Negative (Negative); Protein, Urine (Dipstick) Negative (Neg-Trace); Specific Gravity, Urine 1.028 (1.002-1.036); Squamous Epithelial 0-3 HPF (0-3); Urobilinogen Normal mg/dL (Less than 2); WBC/HPF Greater than 50 HPF (0-3); pH, Urine 5.5 (5.0-9.0)
[2024-11-30 02:34] LABS: Urine Culture Reflex Yes Yes
[2024-11-30 02:39] LABS: Amphetamine Not Detected (NotDetected); Barbiturates Screen Not Detected (NotDetected); Benzodiazepine Screen Not Detected (NotDetected); Cocaine Metabolite Screen Not Detected (NotDetected); Methadone Not Detected (NotDetected); Methamphetamine Not Detected (NotDetected); Opiate Screen Not Detected (NotDetected); Oxycodone Screen Not Detected (NotDetected); Phencyclidine (PCP) Not Detected (NotDetected); THC/Cannabinoid Screen Not Detected (NotDetected); Tricyclic Screen Not Detected (NotDetected)
[2024-11-30] MEDS ORDERED: Sodium Chloride 0.9% 100 ML ONE (03:40)
[2024-11-30] MEDS ORDERED: cefTRIAXone (ROCEPHIN) 1 GM VIAL ONE (03:40)
== END 2024-11-30 05:22 | disposition home or self-care (01) ==
LOC: ERS 22:03
DX: N39.0 Urinary tract infection, site not specified (principal); R41.82 Altered mental status, unspecified; R29.700 NIHSS score 0; I10 Essential (primary) hypertension; E11.9 Type 2 diabetes mellitus without complications; I48.91 Unspecified atrial fibrillation; F32.A Depression, unspecified; Z79.01 Long term (current) use of anticoagulants; Z95.0 Presence of cardiac pacemaker; Z85.118 Personal history of other malignant neoplasm of bronchus and lung
CPT/HCPCS: 70450; 71045; 80306; 80307 ×2; 81001; 82140; 82962; 83690; 84484; 87040; 87086; 87149 ×2; 93005; 94760; J0696; 36416; 80053; 84443; 85025; 96374

== ENCOUNTER 2025-05-19 16:38 | Emergency (ER) | payer MEDICARE ==
[2025-05-19] MEDS ORDERED: Famotidine 20 MG TAB ONE (17:08)
[2025-05-19] MEDS ORDERED: diphenhydrAMINE 25 MG CAP ONE (17:08)
[2025-05-19] MEDS ORDERED: predniSONE 20 MG TAB ONE (17:08)
[2025-05-19 19:12] LABS: #Basophils 0.04 10x3/uL (0.0-0.2); #Eosinophils 0.49 10x3/uL (0.0-0.7); #Monocytes 0.49 10x3/uL (0.11-0.59); #Neutrophils 6.89 10x3/uL (1.40-6.50); %Basophils 0.5 % (0.0-1.0); %Eosinophils 5.6 % (0.0-10.0); %Lymphocytes 9.8 % (21.0-51.0); %Monocytes 5.6 % (0.0-10.0); %Neutrophils 78.0 % (42.0-75.0); Hematocrit 39.8 % (36.0-47.0); Hemoglobin 13.1 g/dL (12.0-16.0); Mean Corpuscular Hemoglobin 31.0 pg (27.0-31.0); Mean Corpuscular Volume 94.3 fL (78.0-98.0); Platelet Count 180 10x3/uL (130-400); Red Blood Cell (RBC) Count 4.22 mill/uL (4.20-5.40); White Blood Cell (WBC) Count 8.81 10x3/uL (4.8-10.8)
[2025-05-19 19:31] LABS: ALT (SGPT) 9 U/L (Less than 34); AST (SGOT) 20 U/L (11-34); Albumin 3.6 g/dL (3.1-4.5); Alkaline Phosphatase 105 U/L (40-110); Anion Gap 11 mmol/L (10-20); BUN (Urea Nitrogen) 13 mg/dL (9.8-20.1); Bilirubin, Total 0.5 mg/dL (0.3-1.2); CK (CPK) 48 U/L (29-168); Calc. Creatinine Clearance 0 mL/min (70-130); Calcium 8.8 mg/dL (7.8-10.44); Carbon Dioxide 25 mmol/L (23-31); Chloride 105 mmol/L (98-107); Globulin 4.0 g/dL (2.4-3.5); Glucose 112 mg/dL (83-110); Potassium 4.0 mmol/L (3.5-5.1); Sodium 137 mmol/L (136-145)
== END 2025-05-19 20:10 | disposition home or self-care (01) ==
LOC: ERS 16:38
DX: L29.9 Pruritus, unspecified (principal); E11.9 Type 2 diabetes mellitus without complications; I48.91 Unspecified atrial fibrillation; Z87.891 Personal history of nicotine dependence; Z95.0 Presence of cardiac pacemaker; Z95.5 Presence of coronary angioplasty implant and graft
CPT/HCPCS: 80053; 82550; 85025; 99282; J7512

== ENCOUNTER 2025-09-09 11:50 | Emergency (ER) | payer MEDICARE ==
[2025-09-09 12:46] LABS: #Basophils 0.03 10x3/uL (0.0-0.2); #Eosinophils 0.56 10x3/uL (0.0-0.7); #Monocytes 0.80 10x3/uL (0.11-0.59); #Neutrophils 6.05 10x3/uL (1.40-6.50); %Basophils 0.4 % (0.0-1.0); %Eosinophils 6.6 % (0.0-10.0); %Lymphocytes 11.5 % (21.0-51.0); %Monocytes 9.5 % (0.0-10.0); %Neutrophils 71.6 % (42.0-75.0); Hematocrit 36.5 % (36.0-47.0); Hemoglobin 12.2 g/dL (12.0-16.0); Mean Corpuscular Hemoglobin 29.8 pg (27.0-31.0); Mean Corpuscular Volume 89.0 fL (78.0-98.0); Platelet Count 204 10x3/uL (130-400); Red Blood Cell (RBC) Count 4.10 mill/uL (4.20-5.40); White Blood Cell (WBC) Count 8.44 10x3/uL (4.8-10.8)
[2025-09-09 13:14] LABS: ALT (SGPT) 11 U/L (Less than 34); AST (SGOT) 17 U/L (11-34); Albumin 2.8 g/dL (3.1-4.5); Alkaline Phosphatase 96 U/L (40-110); Anion Gap 18 mmol/L (10-20); BUN (Urea Nitrogen) 14 mg/dL (9.8-20.1); Bilirubin, Total 1.1 mg/dL (0.3-1.2); Calc. Creatinine Clearance 0 mL/min (70-130); Calcium 9.1 mg/dL (7.8-10.44); Carbon Dioxide 22 mmol/L (23-31); Chloride 102 mmol/L (98-107); Globulin 3.6 g/dL (2.4-3.5); Glucose 582 mg/dL (83-110); Potassium 4.0 mmol/L (3.5-5.1); Sodium 138 mmol/L (136-145)
[2025-09-09] MEDS ORDERED: HYDROcodone/Acetaminophen 5/325 mg Tablet ONE (14:42)
[2025-09-09 14:45] LABS: Bacteria/HPF None Seen HPF (None Seen); CAUTI Indications for Culture Alt mental st,lethar; Glucose, Urine (Dipstick) Greater than 1000 mg/dL (Negative); Leukocyte Negative Leu/uL (Negative); Protein, Urine (Dipstick) Negative (Neg-Trace); RBC/HPF None Seen HPF (0-3); Specific Gravity, Urine 1.031 (1.002-1.036); WBC/HPF None Seen HPF (0-3)
[2025-09-09 14:46] LABS: Urine Culture Reflex No No
[2025-09-09 14:59] LABS: Actual Bicarbonate (HCO3v) 20.0 mEq/L (22-28); Base Excess -6.1 mEq/L (-2.0 to +3.0); Calcium, Ionized (venous) 1.13 mmol/L (1.16-1.32); Chloride (VBG) 103 mmol/L (98-106); Hematocrit-VBG 39 % (36.0-47.0); Hemoglobin (Hb) 13.3 g/dL (11.7-16.1); Potassium (VBG) 4.04 mmol/L (3.70-5.30); Sodium 138 mmol/L (133-146)
== END 2025-09-09 15:56 | disposition home or self-care (01) ==
LOC: ERS 11:50
DX: L30.9 Dermatitis, unspecified (principal); E11.9 Type 2 diabetes mellitus without complications; I48.91 Unspecified atrial fibrillation; Z95.0 Presence of cardiac pacemaker; Z87.891 Personal history of nicotine dependence
CPT/HCPCS: 70450; 71045; 80053; 81001; 82805; 83605; 83880; 84484; 85025; 87040; 87086; 93005; J1815; J2919; 36415; 36416; 51701; 96361; 96374

== ENCOUNTER 2025-09-26 13:28 | Inpatient (IN) | payer MEDICARE ==
[2025-09-26 16:47] LABS: Hematocrit 30.8 % (36.0-47.0); Hemoglobin 10.4 g/dL (12.0-16.0); Mean Corpuscular Hemoglobin 29.5 pg (27.0-31.0); Mean Corpuscular Volume 87.3 fL (78.0-98.0); Platelet Count 153 10x3/uL (130-400); Red Blood Cell (RBC) Count 3.53 mill/uL (4.20-5.40); White Blood Cell (WBC) Count 13.16 10x3/uL (4.8-10.8)
[2025-09-26 16:58] LABS: ALT (SGPT) 17 U/L (Less than 34); AST (SGOT) 30 U/L (11-34); Albumin 1.9 g/dL (3.1-4.5); Alkaline Phosphatase 90 U/L (40-110); Anion Gap 17 mmol/L (10-20); BUN (Urea Nitrogen) 24 mg/dL (9.8-20.1); Bilirubin, Total 1.0 mg/dL (0.3-1.2); Calc. Creatinine Clearance 0 mL/min (70-130); Calcium 7.6 mg/dL (7.8-10.44); Carbon Dioxide 22 mmol/L (23-31); Chloride 99 mmol/L (98-107); Globulin 3.8 g/dL (2.4-3.5); Glucose 341 mg/dL (83-110); Potassium 3.6 mmol/L (3.5-5.1); Sodium 134 mmol/L (136-145)
[2025-09-26] MEDS ORDERED: Cefepime 2 GM VIAL ONE (16:59)
[2025-09-26 17:21] LABS: Burr Cells SLIGHT = 2-5 cells HPF (0-1); Macrocytosis SLIGHT = 6-15 cells HPF (0-5); Microcytosis SLIGHT = 6-15 cells HPF (0-5); Platelet Adequacy Comment Platelets Normal; Poikilocytosis MODERATE=16-30 cells HPF (0-5); Polychromasia SLIGHT = 2-3 cells HPF (0-2); Smudge Cells 5.9 %
[2025-09-26] MEDS ORDERED: Ketorolac Tromethamine 30 MG (1 mL) VIAL ONE (18:07)
[2025-09-26] MEDS ORDERED: Glucagon 1 MG/ML KIT IM PRN (19:14)
[2025-09-26] MEDS ORDERED: Melatonin 3 MG TAB PO PRN (19:14)
[2025-09-26] MEDS ORDERED: Dextrose 50% Abboject 50 ML SYRINGE SLOW IVP PRN (19:14)
[2025-09-26] MEDS ORDERED: Vancomycin 1.5 GRAM/300 ML BAG IVPB SCH (21:00)
[2025-09-26 21:46] VITALS: BMI 36.9
[2025-09-26] MEDS: Vancomycin (BATCH) 2.5 GM in Premix 1 BAG IVPB SCH (21:59)
[2025-09-26] MEDS: cefTRIAXone\\ROCEPHIN 2 GM in Sodium Chloride 0.9% 100 ML IVPB SCH (22:16)
[2025-09-26] MEDS: Gabapentin 300 MG CAP PO SCH (22:17)
[2025-09-26] MEDS: Famotidine 20 MG TAB PO SCH (22:18)
[2025-09-26] MEDS: Melatonin 3 MG TAB PO SCH (22:19)
[2025-09-27 03:56] LABS: Hematocrit 31.1 % (36.0-47.0); Hemoglobin 10.2 g/dL (12.0-16.0); Mean Corpuscular Hemoglobin 29.3 pg (27.0-31.0); Mean Corpuscular Volume 89.4 fL (78.0-98.0); Platelet Count 161 10x3/uL (130-400); Red Blood Cell (RBC) Count 3.48 mill/uL (4.20-5.40); White Blood Cell (WBC) Count 9.66 10x3/uL (4.8-10.8)
[2025-09-27 04:23] LABS: ALT (SGPT) 17 U/L (Less than 34); AST (SGOT) 24 U/L (11-34); Albumin 1.8 g/dL (3.1-4.5); Alkaline Phosphatase 94 U/L (40-110); Anion Gap 16 mmol/L (10-20); BUN (Urea Nitrogen) 26 mg/dL (9.8-20.1); Bilirubin, Total 0.6 mg/dL (0.3-1.2); Calc. Creatinine Clearance 57 mL/min (70-130); Calcium 7.6 mg/dL (7.8-10.44); Carbon Dioxide 20 mmol/L (23-31); Chloride 103 mmol/L (98-107); Globulin 3.9 g/dL (2.4-3.5); Glucose 244 mg/dL (83-110); Potassium 3.4 mmol/L (3.5-5.1); Sodium 136 mmol/L (136-145)
[2025-09-27 04:35] LABS: Vancomycin, Random 25.7 ug/mL (See Comment)
[2025-09-27 05:28] LABS: Burr Cells SLIGHT = 2-5 cells HPF (0-1); Platelet Adequacy Comment Platelets Normal; Polychromasia SLIGHT = 2-3 cells HPF (0-2); Smudge Cells 4.9 %; Toxic Granulation SLIGHT
[2025-09-27] MEDS: Apixaban 5 MG TAB PO SCH (10:20)
[2025-09-27] MEDS: Aspirin 81 mg Enteric Coated Tablet PO SCH (10:20)
[2025-09-27] MEDS: Pantoprazole 40 MG DR.TAB PO SCH (10:20)
[2025-09-27] MEDS: Dapagliflozin Propanediol 10 MG TAB PO SCH (10:21)
[2025-09-27] MEDS: Carvedilol 3.125 MG TAB PO SCH (10:27)
[2025-09-27] MEDS: Ketorolac Tromethamine 30 MG (1 mL) VIAL IVP SCH (14:08)
[2025-09-27] MEDS: Lidocaine 1% w/Epinephrine 1:100K 20 ML VIAL NERVE BLCK SCH ×2 (17:19→18:26)
[2025-09-27] MEDS: Ondansetron PF 4 MG/2 ML Vial IVP SCH (17:52)
[2025-09-27] MEDS ORDERED: Non-Formulary Item 1 EACH (Melatonin [Melatonin] 10 MG Tablet) PO SCH (21:00)
[2025-09-27] MEDS: Melatonin 3 MG TAB PO SCH (21:30)
[2025-09-27] MEDS: Gabapentin 300 MG CAP PO SCH (21:30)
[2025-09-28 05:12] LABS: ALT (SGPT) 19 U/L (Less than 34); AST (SGOT) 36 U/L (11-34); Albumin 1.7 g/dL (3.1-4.5); Alkaline Phosphatase 147 U/L (40-110); Anion Gap 14 mmol/L (10-20); BUN (Urea Nitrogen) 25 mg/dL (9.8-20.1); Bilirubin, Total 0.6 mg/dL (0.3-1.2); Calc. Creatinine Clearance 56 mL/min (70-130); Calcium 7.6 mg/dL (7.8-10.44); Carbon Dioxide 21 mmol/L (23-31); Chloride 105 mmol/L (98-107); Globulin 4.0 g/dL (2.4-3.5); Glucose 155 mg/dL (83-110); Potassium 3.9 mmol/L (3.5-5.1); Sodium 136 mmol/L (136-145)
[2025-09-28 05:26] LABS: Hematocrit 30.4 % (36.0-47.0); Hemoglobin 9.6 g/dL (12.0-16.0); Mean Corpuscular Hemoglobin 29.0 pg (27.0-31.0); Mean Corpuscular Volume 91.8 fL (78.0-98.0); Platelet Count 178 10x3/uL (130-400); Red Blood Cell (RBC) Count 3.31 mill/uL (4.20-5.40); White Blood Cell (WBC) Count 8.97 10x3/uL (4.8-10.8)
[2025-09-28 06:30] LABS: Anisocytosis SLIGHT = 6-15 cells HPF (0-5); Burr Cells SLIGHT = 2-5 cells HPF (0-1); Macrocytosis SLIGHT = 6-15 cells HPF (0-5); Platelet Adequacy Comment Significant Decrease; Polychromasia SLIGHT = 2-3 cells HPF (0-2); Smudge Cells 6.8 %
[2025-09-28] MEDS: Carvedilol 3.125 MG TAB PO SCH (10:29)
[2025-09-28] MEDS: Sulfameth/Trimethoprim DS 800-160mg TAB PO SCH ×2 (11:16→20:35)
[2025-09-28 14:31] LABS: Magnesium 1.1 mg/dL (1.6-2.6)
[2025-09-28] MEDS: Magnesium 2 GM/50 ML(in water) 2 GM in Premix 1 BAG IVPB SCH (16:19)
[2025-09-28] MEDS: Transdermal Patch Removal TOP SCH (22:33)
[2025-09-29 04:28] LABS: ALT (SGPT) 18 U/L (Less than 34); AST (SGOT) 39 U/L (11-34); Albumin 1.5 g/dL (3.1-4.5); Alkaline Phosphatase 117 U/L (40-110); Anion Gap 14 mmol/L (10-20); BUN (Urea Nitrogen) 23 mg/dL (9.8-20.1); Bilirubin, Total 0.3 mg/dL (0.3-1.2); Calc. Creatinine Clearance 57 mL/min (70-130); Calcium 7.6 mg/dL (7.8-10.44); Carbon Dioxide 23 mmol/L (23-31); Chloride 105 mmol/L (98-107); Globulin 3.9 g/dL (2.4-3.5); Glucose 132 mg/dL (83-110); Magnesium 1.6 mg/dL (1.6-2.6); Potassium 3.9 mmol/L (3.5-5.1); Sodium 138 mmol/L (136-145)
[2025-09-29 04:31] LABS: #Basophils Less than 0.03 10x3/uL (0.0-0.2); #Eosinophils 0.29 10x3/uL (0.0-0.7); #Monocytes 0.59 10x3/uL (0.11-0.59); #Neutrophils 4.05 10x3/uL (1.40-6.50); %Basophils 0.4 % (0.0-1.0); %Eosinophils 5.1 % (0.0-10.0); %Lymphocytes 12.8 % (21.0-51.0); %Monocytes 10.4 % (0.0-10.0); %Neutrophils 70.9 % (42.0-75.0); Hematocrit 28.8 % (36.0-47.0); Hemoglobin 9.0 g/dL (12.0-16.0); Mean Corpuscular Hemoglobin 29.3 pg (27.0-31.0); Mean Corpuscular Volume 93.8 fL (78.0-98.0); Platelet Count 188 10x3/uL (130-400); Red Blood Cell (RBC) Count 3.07 mill/uL (4.20-5.40); White Blood Cell (WBC) Count 5.70 10x3/uL (4.8-10.8)
[2025-09-29 13:57] LABS: Sodium, Urine 61.0 mmol/L (Not Available)
[2025-09-29] MEDS: Cephalexin 250 MG CAP PO SCH (14:28)
[2025-09-29] MEDS: Magnesium 2 GM/50 ML(in water) 2 GM in Premix 1 BAG IVPB SCH (18:22)
[2025-09-29] MEDS: Lidocaine 1% w/Epinephrine 1:100K 20 ML VIAL NERVE BLCK SCH (18:30)
[2025-09-30 00:32] LABS: Bacteria/HPF None Seen HPF (None Seen); CAUTI Indications for Culture Dysuria,urgency,freq; Glucose, Urine (Dipstick) Greater than 1000 mg/dL (Negative); Leukocyte Negative Leu/uL (Negative); Protein, Urine (Dipstick) Negative (Neg-Trace); RBC/HPF 0-3 HPF (0-3); Specific Gravity, Urine 1.011 (1.002-1.036); WBC/HPF None Seen HPF (0-3)
[2025-09-30 00:34] LABS: Urine Culture Reflex No No
[2025-09-30 04:34] LABS: #Basophils Less than 0.03 10x3/uL (0.0-0.2); #Eosinophils 0.36 10x3/uL (0.0-0.7); #Monocytes 0.52 10x3/uL (0.11-0.59); #Neutrophils 3.52 10x3/uL (1.40-6.50); %Basophils 0.4 % (0.0-1.0); %Eosinophils 7.1 % (0.0-10.0); %Lymphocytes 12.4 % (21.0-51.0); %Monocytes 10.3 % (0.0-10.0); %Neutrophils 69.4 % (42.0-75.0); Hematocrit 29.7 % (36.0-47.0); Hemoglobin 9.4 g/dL (12.0-16.0); Mean Corpuscular Hemoglobin 29.1 pg (27.0-31.0); Mean Corpuscular Volume 92.0 fL (78.0-98.0); Platelet Count 232 10x3/uL (130-400); Red Blood Cell (RBC) Count 3.23 mill/uL (4.20-5.40); White Blood Cell (WBC) Count 5.07 10x3/uL (4.8-10.8)
[2025-09-30 04:49] LABS: ALT (SGPT) 26 U/L (Less than 34); AST (SGOT) 52 U/L (11-34); Albumin 1.7 g/dL (3.1-4.5); Alkaline Phosphatase 129 U/L (40-110); Anion Gap 13 mmol/L (10-20); BUN (Urea Nitrogen) 17 mg/dL (9.8-20.1); Bilirubin, Total 0.4 mg/dL (0.3-1.2); Calc. Creatinine Clearance 65 mL/min (70-130); Calcium 7.9 mg/dL (7.8-10.44); Carbon Dioxide 23 mmol/L (23-31); Chloride 107 mmol/L (98-107); Globulin 4.0 g/dL (2.4-3.5); Glucose 116 mg/dL (83-110); Magnesium 1.7 mg/dL (1.6-2.6); Potassium 4.0 mmol/L (3.5-5.1); Sodium 139 mmol/L (136-145)
[2025-09-30] MEDS: Lidocaine 4% Topical Sol 50 ML BOT TOP SCH (12:55)
[2025-09-30] MEDS: Acetaminophen 325 MG TAB PO PRN (21:10)
[2025-09-30] MEDS: Acetaminophen 500 MG TAB PO SCH (21:23)
[2025-10-01 04:25] LABS: #Basophils Less than 0.03 10x3/uL (0.0-0.2); #Eosinophils 0.36 10x3/uL (0.0-0.7); #Monocytes 0.43 10x3/uL (0.11-0.59); #Neutrophils 2.93 10x3/uL (1.40-6.50); %Basophils 0.4 % (0.0-1.0); %Eosinophils 8.0 % (0.0-10.0); %Lymphocytes 16.3 % (21.0-51.0); %Monocytes 9.6 % (0.0-10.0); %Neutrophils 65.3 % (42.0-75.0); Hematocrit 28.4 % (36.0-47.0); Hemoglobin 8.9 g/dL (12.0-16.0); Mean Corpuscular Hemoglobin 29.2 pg (27.0-31.0); Mean Corpuscular Volume 93.1 fL (78.0-98.0); Platelet Count 231 10x3/uL (130-400); Red Blood Cell (RBC) Count 3.05 mill/uL (4.20-5.40); White Blood Cell (WBC) Count 4.49 10x3/uL (4.8-10.8)
[2025-10-01 04:48] LABS: ALT (SGPT) 20 U/L (Less than 34); AST (SGOT) 30 U/L (11-34); Albumin 1.6 g/dL (3.1-4.5); Alkaline Phosphatase 106 U/L (40-110); Anion Gap 11 mmol/L (10-20); BUN (Urea Nitrogen) 16 mg/dL (9.8-20.1); Bilirubin, Total 0.2 mg/dL (0.3-1.2); Calc. Creatinine Clearance 64 mL/min (70-130); Calcium 7.8 mg/dL (7.8-10.44); Carbon Dioxide 25 mmol/L (23-31); Chloride 107 mmol/L (98-107); Globulin 3.7 g/dL (2.4-3.5); Glucose 162 mg/dL (83-110); Potassium 4.0 mmol/L (3.5-5.1); Sodium 139 mmol/L (136-145)
[2025-10-01] MEDS: Clindamycin 150 MG CAP PO SCH (17:06)
[2025-10-02 04:08] LABS: #Basophils Less than 0.03 10x3/uL (0.0-0.2); #Eosinophils 0.40 10x3/uL (0.0-0.7); #Monocytes 0.48 10x3/uL (0.11-0.59); #Neutrophils 3.21 10x3/uL (1.40-6.50); %Basophils 0.2 % (0.0-1.0); %Eosinophils 7.8 % (0.0-10.0); %Lymphocytes 20.2 % (21.0-51.0); %Monocytes 9.3 % (0.0-10.0); %Neutrophils 62.1 % (42.0-75.0); Hematocrit 29.4 % (36.0-47.0); Hemoglobin 9.1 g/dL (12.0-16.0); Mean Corpuscular Hemoglobin 29.0 pg (27.0-31.0); Mean Corpuscular Volume 93.6 fL (78.0-98.0); Platelet Count 282 10x3/uL (130-400); Red Blood Cell (RBC) Count 3.14 mill/uL (4.20-5.40); White Blood Cell (WBC) Count 5.16 10x3/uL (4.8-10.8)
[2025-10-02 04:23] LABS: ALT (SGPT) 18 U/L (Less than 34); AST (SGOT) 31 U/L (11-34); Albumin 1.8 g/dL (3.1-4.5); Alkaline Phosphatase 104 U/L (40-110); Anion Gap 11 mmol/L (10-20); BUN (Urea Nitrogen) 13 mg/dL (9.8-20.1); Bilirubin, Total 0.3 mg/dL (0.3-1.2); Calc. Creatinine Clearance 82 mL/min (70-130); Calcium 8.1 mg/dL (7.8-10.44); Carbon Dioxide 24 mmol/L (23-31); Chloride 109 mmol/L (98-107); Globulin 4.2 g/dL (2.4-3.5); Glucose 122 mg/dL (83-110); Potassium 3.9 mmol/L (3.5-5.1); Sodium 140 mmol/L (136-145)
[2025-10-02] MEDS: Clindamycin 150 MG CAP PO SCH (15:44)
[2025-10-03 04:56] LABS: #Basophils Less than 0.03 10x3/uL (0.0-0.2); #Eosinophils 0.37 10x3/uL (0.0-0.7); #Monocytes 0.47 10x3/uL (0.11-0.59); #Neutrophils 3.43 10x3/uL (1.40-6.50); %Basophils 0.2 % (0.0-1.0); %Eosinophils 7.2 % (0.0-10.0); %Lymphocytes 16.3 % (21.0-51.0); %Monocytes 9.1 % (0.0-10.0); %Neutrophils 66.6 % (42.0-75.0); Hematocrit 30.7 % (36.0-47.0); Hemoglobin 9.5 g/dL (12.0-16.0); Mean Corpuscular Hemoglobin 28.8 pg (27.0-31.0); Mean Corpuscular Volume 93.0 fL (78.0-98.0); Platelet Count 282 10x3/uL (130-400); Red Blood Cell (RBC) Count 3.30 mill/uL (4.20-5.40); White Blood Cell (WBC) Count 5.15 10x3/uL (4.8-10.8)
[2025-10-03 05:13] LABS: ALT (SGPT) 14 U/L (Less than 34); AST (SGOT) 31 U/L (11-34); Albumin 1.9 g/dL (3.1-4.5); Alkaline Phosphatase 95 U/L (40-110); Anion Gap 13 mmol/L (10-20); BUN (Urea Nitrogen) 11 mg/dL (9.8-20.1); Bilirubin, Total 0.4 mg/dL (0.3-1.2); Calc. Creatinine Clearance 81 mL/min (70-130); Calcium 8.3 mg/dL (7.8-10.44); Carbon Dioxide 25 mmol/L (23-31); Chloride 108 mmol/L (98-107); Globulin 4.1 g/dL (2.4-3.5); Glucose 118 mg/dL (83-110); Potassium 4.2 mmol/L (3.5-5.1); Sodium 142 mmol/L (136-145)
[2025-10-03 21:10] VITALS: BMI 36.9
[2025-10-04 04:41] LABS: #Basophils Less than 0.03 10x3/uL (0.0-0.2); #Eosinophils 0.33 10x3/uL (0.0-0.7); #Monocytes 0.38 10x3/uL (0.11-0.59); #Neutrophils 2.90 10x3/uL (1.40-6.50); %Basophils 0.2 % (0.0-1.0); %Eosinophils 7.3 % (0.0-10.0); %Lymphocytes 18.7 % (21.0-51.0); %Monocytes 8.4 % (0.0-10.0); %Neutrophils 64.5 % (42.0-75.0); Hematocrit 29.3 % (36.0-47.0); Hemoglobin 8.9 g/dL (12.0-16.0); Mean Corpuscular Hemoglobin 28.7 pg (27.0-31.0); Mean Corpuscular Volume 94.5 fL (78.0-98.0); Platelet Count 253 10x3/uL (130-400); Red Blood Cell (RBC) Count 3.10 mill/uL (4.20-5.40); White Blood Cell (WBC) Count 4.50 10x3/uL (4.8-10.8)
[2025-10-04 05:05] LABS: ALT (SGPT) 16 U/L (Less than 34); AST (SGOT) 28 U/L (11-34); Albumin 1.8 g/dL (3.1-4.5); Alkaline Phosphatase 82 U/L (40-110); Anion Gap 14 mmol/L (10-20); BUN (Urea Nitrogen) 10 mg/dL (9.8-20.1); Bilirubin, Total 0.3 mg/dL (0.3-1.2); Calc. Creatinine Clearance 78 mL/min (70-130); Calcium 8.0 mg/dL (7.8-10.44); Carbon Dioxide 27 mmol/L (23-31); Chloride 107 mmol/L (98-107); Globulin 3.7 g/dL (2.4-3.5); Glucose 137 mg/dL (83-110); Potassium 3.8 mmol/L (3.5-5.1); Sodium 144 mmol/L (136-145)
[2025-10-04] MEDS ORDERED: PROPOFOL 40 ML ONE (09:16)
[2025-10-04] MEDS ORDERED: CEFAZOLIN 2 GM VIAL ONE (09:38)
[2025-10-04] MEDS ORDERED: Lidocaine 1% w/Epinephrine 1:100K 20 ML VIAL ONE (09:53)
[2025-10-05 04:23] LABS: #Basophils Less than 0.03 10x3/uL (0.0-0.2); #Eosinophils 0.42 10x3/uL (0.0-0.7); #Monocytes 0.41 10x3/uL (0.11-0.59); #Neutrophils 2.40 10x3/uL (1.40-6.50); %Basophils 0.5 % (0.0-1.0); %Eosinophils 10.0 % (0.0-10.0); %Lymphocytes 21.4 % (21.0-51.0); %Monocytes 9.8 % (0.0-10.0); %Neutrophils 57.1 % (42.0-75.0); Hematocrit 31.0 % (36.0-47.0); Hemoglobin 9.5 g/dL (12.0-16.0); Mean Corpuscular Hemoglobin 28.8 pg (27.0-31.0); Mean Corpuscular Volume 93.9 fL (78.0-98.0); Platelet Count 281 10x3/uL (130-400); Red Blood Cell (RBC) Count 3.30 mill/uL (4.20-5.40); White Blood Cell (WBC) Count 4.20 10x3/uL (4.8-10.8)
[2025-10-05 04:43] LABS: ALT (SGPT) 13 U/L (Less than 34); AST (SGOT) 30 U/L (11-34); Albumin 2.0 g/dL (3.1-4.5); Alkaline Phosphatase 81 U/L (40-110); Anion Gap 13 mmol/L (10-20); BUN (Urea Nitrogen) 11 mg/dL (9.8-20.1); Bilirubin, Total 0.3 mg/dL (0.3-1.2); Calc. Creatinine Clearance 73 mL/min (70-130); Calcium 8.0 mg/dL (7.8-10.44); Carbon Dioxide 27 mmol/L (23-31); Chloride 108 mmol/L (98-107); Globulin 3.7 g/dL (2.4-3.5); Glucose 111 mg/dL (83-110); Potassium 4.0 mmol/L (3.5-5.1); Sodium 144 mmol/L (136-145)
[2025-10-06 04:20] LABS: #Basophils 0.03 10x3/uL (0.0-0.2); #Eosinophils 0.39 10x3/uL (0.0-0.7); #Monocytes 0.42 10x3/uL (0.11-0.59); #Neutrophils 2.63 10x3/uL (1.40-6.50); %Basophils 0.7 % (0.0-1.0); %Eosinophils 8.5 % (0.0-10.0); %Lymphocytes 23.4 % (21.0-51.0); %Monocytes 9.2 % (0.0-10.0); %Neutrophils 57.3 % (42.0-75.0); Hematocrit 29.3 % (36.0-47.0); Hemoglobin 9.0 g/dL (12.0-16.0); Mean Corpuscular Hemoglobin 29.0 pg (27.0-31.0); Mean Corpuscular Volume 94.5 fL (78.0-98.0); Platelet Count 239 10x3/uL (130-400); Red Blood Cell (RBC) Count 3.10 mill/uL (4.20-5.40); White Blood Cell (WBC) Count 4.58 10x3/uL (4.8-10.8)
[2025-10-06 04:44] LABS: ALT (SGPT) 13 U/L (Less than 34); AST (SGOT) 36 U/L (11-34); Albumin 2.1 g/dL (3.1-4.5); Alkaline Phosphatase 79 U/L (40-110); Anion Gap 15 mmol/L (10-20); BUN (Urea Nitrogen) 13 mg/dL (9.8-20.1); Bilirubin, Total 0.3 mg/dL (0.3-1.2); Calc. Creatinine Clearance 76 mL/min (70-130); Calcium 8.4 mg/dL (7.8-10.44); Carbon Dioxide 26 mmol/L (23-31); Chloride 106 mmol/L (98-107); Globulin 4.1 g/dL (2.4-3.5); Glucose 132 mg/dL (83-110); Potassium 4.1 mmol/L (3.5-5.1); Sodium 143 mmol/L (136-145)
[2025-10-06 16:26] VITALS: BP 147/72; TEMP 97.8
== END 2025-10-06 19:41 | disposition home health service (06) | DRG 584 ==
LOC: ERS 13:28 → INTOOBSV 20:25 → 2SE 20:25 → OBSVTOIN 09-27 12:31 → 2NO 09-30 20:11
PROVIDERS: ADMIT Student in an Organized Health Care Education/Training Program; ATTEND Student in an Organized Health Care Education/Training Program
PROC: 0H96XZZ Drainage of Back Skin, External Approach (ICD-10-PCS; 2025-09-29)
PROC: 0H9T0ZZ Drainage of Right Breast, Open Approach (ICD-10-PCS; principal; 2025-10-04)
DX: N61.1 Abscess of the breast and nipple (principal); E87.1 Hypo-osmolality and hyponatremia; L02.212 Cutaneous abscess of back [any part, except buttock and flank]; N17.9 Acute kidney failure, unspecified; E87.20 Acidosis, unspecified; I10 Essential (primary) hypertension; E78.5 Hyperlipidemia, unspecified; E11.9 Type 2 diabetes mellitus without complications; I48.91 Unspecified atrial fibrillation; L29.9 Pruritus, unspecified; Z79.84 Long term (current) use of oral hypoglycemic drugs
CPT/HCPCS: 36415; 36416; 71045; 80053; 80202; 81001; 82570; 83605; 83735; 84300; 85025; 87040; 87070; 87077; 87149; 87186; 87205; 87428; 93005; 96365; 96367; 96375; 97139; J0692; J0696; J1815; J1885; J2270; J2272; J2405; J2704; J3010; J3373; J3475; J7050; J7120